=== PATIENT | male | born 1940 | race Two or more races ===

== ENCOUNTER 2017-09-23 22:45 | Emergency (ER) | payer OTHER ==
[~2017-09-23] VITALS: Ht 165.1 cm; Wt 104.3 kg
[~2017-09-23 22:45] MED LIST: ASPIR 8181 MG; CATAFLAM50 MG PO; CIPRO500 MG PO; COZAAR50 MG; DICLOFENAC SODI50 MG PO; LOTRIMIN AF90 GM TP; METFORMIN HCL850 MG; SILVADENE50 GM TP; VASOTEC2.5 MG; VERAPAMIL ER200 MG
[2017-09-24] MEDS ORDERED: RELAGESIC 5001 EACH PO (05:26)
== END 2017-09-24 05:22 | disposition home or self-care (01) ==
LOC: ER 22:45
DX: M94.0 Chondrocostal junction syndrome [Tietze] (principal); R07.89 Other chest pain

== ENCOUNTER 2019-03-14 12:34 | Outpatient (CLI) | payer OTHER ==
[~2019-03-14 12:34] MED LIST changes: +RELAGESIC 5001 EACH PO
== END 2019-03-14 12:41 | disposition home or self-care (01) ==
LOC: SONOGRAMA 12:34 → MAMO-SONO 13:15
DX: N40.1 Benign prostatic hyperplasia with lower urinary tract symptoms (principal); N20.0 Calculus of kidney; N28.89 Other specified disorders of kidney and ureter; R97.20 Elevated prostate specific antigen [PSA]

== ENCOUNTER 2019-03-22 09:46 | Outpatient (CLI) | payer OTHER | END 2019-03-22 09:48 | disposition home or self-care (01) | LOC: NUCLEAR 09:46 | DX: M81.0 Age-related osteoporosis without current pathological fracture (principal) ==

== ENCOUNTER 2019-04-10 02:50 | Emergency (ER) | payer OTHER ==
[~2019-04-10] VITALS: Ht 165.1 cm; Wt 101.6 kg
[2019-04-10] MEDS ORDERED: FORTAMET1000 MG (03:08)
[2019-04-10] MEDS ORDERED: ULTRACET PO (04:33)
== END 2019-04-10 04:44 | disposition home or self-care (01) ==
LOC: ER 02:50
DX: M13.831 Other specified arthritis, right wrist (principal)

== ENCOUNTER 2019-07-07 20:20 | Emergency (ER) | payer OTHER ==
[~2019-07-07] VITALS: Ht 165.1 cm; Wt 103.4 kg
[~2019-07-07 20:20] MED LIST changes: +FORTAMET1000 MG; +ULTRACET PO
== END 2019-07-07 23:59 | disposition home or self-care (01) ==
LOC: ER 20:20
DX: S01.121A Laceration with foreign body of right eyelid and periocular area, initial encounter (principal); W18.09XA Striking against other object with subsequent fall, initial encounter; Y93.89 Activity, other specified; Y92.413 State road as the place of occurrence of the external cause; Y99.8 Other external cause status

== ENCOUNTER 2019-07-21 14:38 | Emergency (ER) | payer OTHER ==
[~2019-07-21] VITALS: Ht 165.1 cm; Wt 103.4 kg
[2019-07-21] MEDS ORDERED: SYNTHROID100 MCG (15:22)
== END 2019-07-21 17:56 | disposition home or self-care (01) ==
LOC: ER 14:38
DX: Z48.02 Encounter for removal of sutures (principal)

== ENCOUNTER 2019-08-17 21:26 | Inpatient (IN) | payer OTHER ==
[~2019-08-17] VITALS: Ht 165.1 cm; Wt 103.4 kg
[~2019-08-17 21:26] MED LIST changes: +SYNTHROID100 MCG
== END 2019-08-22 16:10 | disposition home or self-care (01) | DRG 439 ==
LOC: ER 21:26 → SEC-K 08-18 09:33 → SURH 08-18 09:33
PROVIDERS: ADMIT Internal Medicine
PROC: BF35ZZZ Magnetic Resonance Imaging (MRI) of Liver (ICD-10-PCS; principal; 2019-08-18)
PROC: BW40ZZZ Ultrasonography of Abdomen (ICD-10-PCS; 2019-08-18)
PROC: 02HV33Z Insertion of Infusion Device into Superior Vena Cava, Percutaneous Approach (ICD-10-PCS; 2019-08-19)
PROC: 4A033R1 Measurement of Arterial Saturation, Peripheral, Percutaneous Approach (ICD-10-PCS; 2019-08-20)
DX: K85.10 Biliary acute pancreatitis without necrosis or infection (principal); Q61.01 Congenital single renal cyst; E86.0 Dehydration; E87.8 Other disorders of electrolyte and fluid balance, not elsewhere classified; E03.8 Other specified hypothyroidism; E66.09 Other obesity due to excess calories; R31.29 Other microscopic hematuria; K80.80 Other cholelithiasis without obstruction; E11.9 Type 2 diabetes mellitus without complications; Z79.4 Long term (current) use of insulin

== ENCOUNTER 2019-09-03 13:18 | Emergency (ER) | payer OTHER ==
[~2019-09-03] VITALS: Ht 165.1 cm; Wt 103.4 kg
[2019-09-03] MEDS ORDERED: COZAAR100 MG (13:39)
== END 2019-09-04 09:24 | disposition home or self-care (01) ==
LOC: ER 13:18
DX: K80.80 Other cholelithiasis without obstruction (principal); R10.11 Right upper quadrant pain

== ENCOUNTER 2019-09-26 16:17 | Outpatient (CLI) | payer OTHER ==
[~2019-09-26 16:17] MED LIST changes: +COZAAR100 MG
== END 2019-09-26 16:21 | disposition home or self-care (01) ==
LOC: RAD 16:17
DX: R51 Headache (principal)

== ENCOUNTER 2019-12-23 05:34 | Emergency (ER) | payer OTHER ==
[~2019-12-23] VITALS: Ht 165.1 cm; Wt 103.4 kg
[2019-12-23] MEDS ORDERED: TAMS0.4C (05:55)
[2019-12-23] MEDS ORDERED: GLIPIZIDE XL10 MG (05:55)
[2019-12-23] MEDS ORDERED: LASIX20 MG PO (07:34)
== END 2019-12-23 07:46 | disposition home or self-care (01) ==
LOC: ER 05:34
DX: R60.0 Localized edema (principal)

== ENCOUNTER 2020-02-16 22:34 | Inpatient (IN) | payer OTHER ==
[~2020-02-16] VITALS: Ht 165.1 cm; Wt 72.6 kg
[~2020-02-16 22:34] MED LIST changes: +GLIPIZIDE XL10 MG; +LASIX20 MG PO; +TAMS0.4C
--- NOTE | 2020-02-16 22:45 | NUR ---
PTE ALERTA Y ORIENTADO X 3 ESFERAS EN AMBULANCIA SIN FAMILIAR EN COMPANIA DE PARAMEDICOS.PTE REFIERE DOLOR ABDOMINAL Y VOMITOS DESDE HACE 2 LORD,REFIERE SUDORACION Y AZUCAR ORIN,SE NOAH S/V Y SE PRESENTA A DR GONZALEZ.
--- NOTE | 2020-02-16 23:57 | NUR ---
BAJO MEDIDAS ASEPTICAS AL PACIENTE SE LE CANALIZA Y SE LE ESTER MUESTRAS DE ALYSA PARA REALIZAR LABORATORIOS. CORINE ORDEN MEDICA SE LE ADMINISTRA MEDICAMENTOS IV CON IVF 0.9% NACL LUEGO DE RUTH SIDO ORIENTADO SOBRE LOS EFECTOS.
--- NOTE | 2020-02-17 02:15 | NUR ---
BAJO MEDIDAS ASEPTICAS AL PACIENTE SE LE ADMINISTRA MEDICAMENTOS IM EN GLUTEO DERECHO SUPERIOR CORINE ORDEN MEDICA.
--- NOTE | 2020-02-17 07:39 | NUR ---
PACIENTE ALERTA Y ORIENTADO EN SALVATORE SOBIA ESFERAS, PRESENTA BUEN PATRON RESPIRATORIO Y RAFFY DE DOLOR. CANALIZADO EN BRAZO RT PATENTE Y RAFFY DE S/S DE FLEBITIS E INFILTRACION, RECIBIENDO 0.9% NSS A 100 ML/HR. PENDIENTE EVALUACION DE MEDICINA INTERNA CON DR TORRI ARAUJO POR PANCREATITIS.
[2020-02-26] MEDS ORDERED: COZAAR100 MG PO (07:59)
[2020-02-26] MEDS ORDERED: GLIPIZIDE XL10 MG PO (07:59)
[2020-02-26] MEDS ORDERED: VERAPAMIL 180 MG PO (07:59)
[2020-02-26] MEDS ORDERED: FORTAMET1000 MG PO (07:59)
[2020-02-26] MEDS ORDERED: LEVOTHYROXINE125 MCG PO (07:59)
[2020-02-26] MEDS ORDERED: HYDRALAZINE HCL25 MG PO (07:59)
[2020-02-26] MEDS ORDERED: INTEGRA PLUS C1 EACH PO (07:59)
[2020-02-26] MEDS ORDERED: TAMS0.4C PO (07:59)
== END 2020-02-26 10:48 | disposition home or self-care (01) | DRG 417 ==
LOC: ER 22:34 → MEDI 02-17 10:31 → MEDJ 02-17 10:31 → SURG 02-22 14:01
PROVIDERS: Surgery; ADMIT Internal Medicine; ATTEND Internal Medicine
PROC: 05HY33Z Insertion of Infusion Device into Upper Vein, Percutaneous Approach (ICD-10-PCS; 2020-02-20)
PROC: 0WQF4ZZ Repair Abdominal Wall, Percutaneous Endoscopic Approach (ICD-10-PCS; 2020-02-22)
PROC: 0FT44ZZ Resection of Gallbladder, Percutaneous Endoscopic Approach (ICD-10-PCS; principal; 2020-02-22 14:45)
DX: K80.10 Calculus of gallbladder with chronic cholecystitis without obstruction (principal); K85.10 Biliary acute pancreatitis without necrosis or infection; N17.9 Acute kidney failure, unspecified; K42.9 Umbilical hernia without obstruction or gangrene; E86.0 Dehydration; E11.65 Type 2 diabetes mellitus with hyperglycemia; E66.8 Other obesity; I10 Essential (primary) hypertension; M94.0 Chondrocostal junction syndrome [Tietze]; M54.5 Low back pain; J06.9 Acute upper respiratory infection, unspecified; J40 Bronchitis, not specified as acute or chronic

== ENCOUNTER 2020-12-03 07:40 | Outpatient (CLI) | payer OTHER ==
[~2020-12-03 07:40] MED LIST changes: +COZAAR100 MG PO; +FORTAMET1000 MG PO; +GLIPIZIDE XL10 MG PO; +HYDRALAZINE HCL25 MG PO; +INTEGRA PLUS C1 EACH PO; +LEVOTHYROXINE125 MCG PO; +TAMS0.4C PO; +VERAPAMIL 180 MG PO
== END 2020-12-03 07:56 | disposition home or self-care (01) ==
LOC: SONOGRAMA 07:40 → MAMO-SONO 07:45 → SONOGRAMA 07:56
PROVIDERS: ATTEND Internal Medicine Nephrology
DX: N16 Renal tubulo-interstitial disorders in diseases classified elsewhere (principal); E11.22 Type 2 diabetes mellitus with diabetic chronic kidney disease; N41.8 Other inflammatory diseases of prostate; N18.9 Chronic kidney disease, unspecified

== ENCOUNTER 2021-02-07 09:37 | Emergency (ER) | payer OTHER ==
[~2021-02-07] VITALS: Ht 165.1 cm; Wt 103.4 kg
== END 2021-02-07 11:55 | disposition home or self-care (01) ==
LOC: ER 09:37
DX: R60.0 Localized edema (principal)

== ENCOUNTER 2021-07-20 08:40 | Outpatient (CLI) | payer OTHER | END 2021-07-20 08:46 | disposition home or self-care (01) | LOC: SONOGRAMA 08:40 | PROVIDERS: ATTEND Urology | DX: N40.1 Benign prostatic hyperplasia with lower urinary tract symptoms (principal) ==

== ENCOUNTER 2021-08-25 09:00 | Outpatient (CLI) | payer OTHER | END 2021-08-25 09:15 | disposition home or self-care (01) | LOC: PPH VACUNA 09:00 | PROVIDERS: ATTEND Emergency Medicine Pediatric Emergency Medicine | DX: Z23 Encounter for immunization (principal) ==

== ENCOUNTER → 2022-07-06 | Outpatient (CLI) | payer OTHER | END | disposition home or self-care (01) | LOC: RAD 12:49 | PROVIDERS: ATTEND Urology | DX: J98.4 Other disorders of lung (principal) ==

== ENCOUNTER → 2022-07-09 | Outpatient (CLI) | payer OTHER | END | disposition home or self-care (01) | LOC: NUCLEAR 08:41 | PROVIDERS: ATTEND Urology | DX: I82.403 Acute embolism and thrombosis of unspecified deep veins of lower extremity, bilateral (principal) ==

== ENCOUNTER 2023-02-09 10:20 | Outpatient (CLI) | payer OTHER | END 2023-02-09 10:28 | disposition home or self-care (01) | LOC: SONOGRAMA 10:20 | PROVIDERS: ATTEND Urology | DX: N40.1 Benign prostatic hyperplasia with lower urinary tract symptoms (principal); R97.20 Elevated prostate specific antigen [PSA] ==

== ENCOUNTER 2023-02-25 04:45 | Inpatient (IN) | payer OTHER ==
[~2023-02-25] VITALS: Ht 165.1 cm; Wt 103.4 kg
[2023-02-25] MEDS ORDERED: FINASTERIDE5 MG (14:58)
[2023-02-25] MEDS ORDERED: ATORVASTATIN CA10 MG (14:58)
[2023-02-25] MEDS ORDERED: LOSARTAN POTAS100 MG (14:58)
[2023-02-25] MEDS ORDERED: ST. JOSEPH ASPI81 M2 (14:58)
[2023-02-25] MEDS ORDERED: METFORMIN HCL850 M1 (14:58)
[2023-03-01] MEDS ORDERED: AMLODIPINE BESYL5 MG PO (10:48)
[2023-03-01] MEDS ORDERED: TAMS0.4C PO (10:48)
[2023-03-01] MEDS ORDERED: INTEGRA PLUS C1 EACH PO (10:48)
[2023-03-01] MEDS ORDERED: ATORVASTATIN CA10 MG PO (10:49)
[2023-03-01] MEDS ORDERED: TOPROL XL50 M1 PO (10:50)
[2023-03-01] MEDS ORDERED: GLIPIZIDE XL10 MG PO (10:50)
[2023-03-01] MEDS ORDERED: ADULT ASPIRIN81 MG PO (10:50)
[2023-03-01] MEDS ORDERED: LEVOTHYROXINE125 MCG PO (10:51)
[2023-03-01] MEDS ORDERED: FINASTERIDE5 MG PO (10:51)
== END 2023-03-01 13:40 | disposition home or self-care (01) | DRG 281 ==
LOC: ER 04:45 → MEDI 11:46
PROVIDERS: ADMIT Internal Medicine; ATTEND Internal Medicine
PROC: BW28ZZZ Computerized Tomography (CT Scan) of Head (ICD-10-PCS; principal; 2023-02-25)
PROC: BW21ZZZ Computerized Tomography (CT Scan) of Abdomen and Pelvis (ICD-10-PCS; 2023-02-25)
PROC: 4A12X4Z Monitoring of Cardiac Electrical Activity, External Approach (ICD-10-PCS; 2023-02-25)
PROC: B246ZZZ Ultrasonography of Right and Left Heart (ICD-10-PCS; 2023-02-26)
DX: I21.4 Non-ST elevation (NSTEMI) myocardial infarction (principal); N17.8 Other acute kidney failure; S00.83XA Contusion of other part of head, initial encounter; E87.5 Hyperkalemia; I13.10 Hypertensive heart and chronic kidney disease without heart failure, with stage 1 through stage 4 chronic kidney disease, or unspecified chronic kidney disease; E11.22 Type 2 diabetes mellitus with diabetic chronic kidney disease; N18.9 Chronic kidney disease, unspecified; W13.3XXA Fall through floor, initial encounter; Z79.4 Long term (current) use of insulin; E86.0 Dehydration; E78.49 Other hyperlipidemia

== ENCOUNTER 2023-04-27 14:20 | Inpatient (IN) | payer OTHER ==
[~2023-04-27] VITALS: Ht 167.6 cm; Wt 103.4 kg
[~2023-04-27 14:20] MED LIST changes: +ADULT ASPIRIN81 MG PO; +AMLODIPINE BESYL5 MG PO; +ATORVASTATIN CA10 MG; +ATORVASTATIN CA10 MG PO; +FINASTERIDE5 MG; +FINASTERIDE5 MG PO; +LOSARTAN POTAS100 MG; +METFORMIN HCL850 M1; +ST. JOSEPH ASPI81 M2; +TOPROL XL50 M1 PO
--- NOTE | 2023-04-27 14:32 | NUR ---
PTE ALERTA,ESTABLE Y ORIENTADO.OBIE REFIERE QUE DESDE HACE ALEXY SEMANA COMENZO CON EL DOLOR CORPORAL.
--- NOTE | 2023-04-27 15:55 | NUR ---
SE EDUCA A PTE SOBRE TX MEDICO OBIE REFIERE ENTENDER, SE NOAH MUESTRAS DE LABORATORIO UTILIZANDO MEDIDAS ASEPTICAS. SE JOSE GUADALUPE MEDICAMENTO PO EL CUAL TOLERA Y SE REALIZA EKG.
[2023-05-03] MEDS ORDERED: ALBUTEROL2.5 MG/3 M IH (13:22)
[2023-05-03] MEDS ORDERED: TAMS0.4C PO (13:23)
[2023-05-03] MEDS ORDERED: AMLODIPINE BESYL5 MG PO (13:23)
[2023-05-03] MEDS ORDERED: ATORVASTATIN CA10 MG PO (13:23)
[2023-05-03] MEDS ORDERED: TOPROL XL50 M1 PO (13:23)
[2023-05-03] MEDS ORDERED: INTEGRA PLUS C1 EACH PO (13:23)
[2023-05-03] MEDS ORDERED: FUROSEMIDE40 MG PO (13:24)
[2023-05-03] MEDS ORDERED: HYDRALAZINE HCL50 MG PO (13:24)
[2023-05-03] MEDS ORDERED: LEVOTHYROXINE125 MCG PO (13:25)
[2023-05-03] MEDS ORDERED: FINASTERIDE5 MG PO (13:25)
== END 2023-05-03 14:38 | disposition home or self-care (01) | DRG 280 ==
LOC: ER 14:20 → MEDI 22:00 → SEC-K 22:00 → MEDJ 04-28 17:33
PROVIDERS: General Practice; ADMIT Internal Medicine; ATTEND Internal Medicine
PROC: B24BZZZ Ultrasonography of Heart with Aorta (ICD-10-PCS; 2023-04-27)
PROC: BW21ZZZ Computerized Tomography (CT Scan) of Abdomen and Pelvis (ICD-10-PCS; 2023-04-27)
PROC: 4A12X4Z Monitoring of Cardiac Electrical Activity, External Approach (ICD-10-PCS; principal; 2023-04-28)
DX: I13.0 Hypertensive heart and chronic kidney disease with heart failure and stage 1 through stage 4 chronic kidney disease, or unspecified chronic kidney disease (principal); I21.A1 Myocardial infarction type 2; I50.33 Acute on chronic diastolic (congestive) heart failure; E87.5 Hyperkalemia; E11.22 Type 2 diabetes mellitus with diabetic chronic kidney disease; N18.9 Chronic kidney disease, unspecified; D63.1 Anemia in chronic kidney disease; Z79.4 Long term (current) use of insulin; I34.0 Nonrheumatic mitral (valve) insufficiency; E66.8 Other obesity; E03.9 Hypothyroidism, unspecified; E11.65 Type 2 diabetes mellitus with hyperglycemia; Z20.822 Contact with and (suspected) exposure to COVID-19